=== PATIENT | female | born 1990 | race African-American/Black ===

== ENCOUNTER 2017-06-20 01:48 | Emergency (ER) | payer SELFPAY ==
[~2017-06-20] VITALS: Ht 167.6 cm; Wt 63.5 kg
[2017-06-20 02:10] VITALS: BP 150/79
[2017-06-20 02:41] LABS: APPEARANCE,URINE SLIGHTLY CLOUDY; BILIRUBIN, URINE NEGATIVE (NEGATIVE); COLOR,URINE PALE YELLOW; GLUCOSE, URINE (UA) NEGATIVE (NEGATIVE); KETONES,URINE NEGATIVE (NEGATIVE); LEUKOCYTE ESTERASE ,URINE NEGATIVE (NEGATIVE); NITRITE,URINE NEGATIVE (NEGATIVE); PH,URINE 5 (4.5-8.0); PROTEIN,URINE NEGATIVE (NEGATIVE); UROBILINOGEN,URINE NORMAL MG/DL (0.0-1.0)
--- NOTE | 2017-06-20 03:10 | Emergency Room Report ---
History of Present Illness General Chief Complaint: Altered Level of Consciousness Source: Patient, Family Member, EMS Present Illness HPI This is a 27-year-old female with no past medical history. She was celebrating her birthday tonight. She was at a club and was drinking and took a pink heart- shaped pill. Afterward she was acting abnormal according to her cousin. She was incoherent and then fell down a couple steps. She was then shaking and screaming. They called 911. Patient has no head injury. Does have abrasion to her elbow area. No nausea no vomiting. She is better now. Denies suicidal thought or homicidal thoughts. Allergies: Coded Allergies: No Known Allergies (Unverified , 06/20/17) Patient History Past Medical History: see triage record, old chart reviewed Past Surgical History: none Pertinent Family History: none Social History: Denies: smoking Now: No Immunizations: other Reviewed Nursing Documentation: PMH: Agreed, PSxH: Agreed Nursing Documentation-PMH Past Medical History: No Stated History Review of Systems Eye: Denies: eye pain, blurred vision ENT: Denies: ear pain, nose congestion, throat swelling Respiratory: Denies: cough, shortness of breath Cardiovascular: Denies: chest pain, palpitations Gastrointestinal: Denies: abdominal pain, diarrhea, nausea, vomiting Musculoskeletal: Denies: back pain, joint pain Skin: Denies: rash Neurological: Denies: headache, numbness Endocrine: Denies: increased thirst, increased urine Hematologic/Lymphatic: Denies: easy bruising All Other Systems: negative except mentioned in HPI Physical Exam Vital Signs Date Time Temp Pulse Resp B/P (MAP) Pulse Ox O2 Delivery O2 Flow Rate FiO2 06/20/17 01:48 98.0 100 18 185/80 98 Room Air 98.1 vitals with high blood pressure Sp02 EP Interpretation: reviewed, normal General Appearance: well appearing, no apparent distress, alert Head: normocephalic, atraumatic Eyes: bilateral eye PERRL, bilateral eye EOMI ENT: hearing grossly normal, normal pharynx Neck: full range of motion, supple, no meningismus Respiratory: chest non-tender, lungs clear, normal breath sounds Cardiovascular #1: regular rate, rhythm, no murmur Gastrointestinal: normal bowel sounds, non tender, no mass, no organomegaly, no bruit, non-distended Musculoskeletal: back normal, gait/station normal, normal range of motion Psychiatric: mood/affect normal Skin: warm/dry Medical Decision Making Diagnostic Impression: Primary Impression: Acute delirium Additional Impressions: Alcohol intoxication Qualified Codes: 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 She is back to baseline now. Still little tachycardic but heart rate in the 110s. We'll discharge home with her cousin. Last Vital Signs Date Time Temp Pulse Resp B/P (MAP) Pulse Ox O2 Delivery O2 Flow Rate FiO2 06/20/17 02:10 98.2 117 17 150/79 97 Room Air 98.2 Status: improved Disposition: HOME, SELF-CARE Condition: Stable Additional Instructions: Abstain from drinking to excess. Abstain from drugs. Follow-up with your DrTejas in 7 days. Return if worse. MARINA COLON M.D. Jun 20, 2017 03:10
[2017-06-20 03:31] VITALS: BP 132/74
[2017-06-20 04:15] VITALS: BP 129/74
[2017-06-20 04:20] VITALS: BP 129/74
== END 2017-06-20 04:20 | disposition home or self-care (01) ==
LOC: EDBD 01:48 → EMR 04:00
DX: F16.10 Hallucinogen abuse, uncomplicated (principal); R41.0 Disorientation, unspecified; F10.920 Alcohol use, unspecified with intoxication, uncomplicated; X58.XXXA Exposure to other specified factors, initial encounter; Y93.9 Activity, unspecified; Y92.29 Other specified public building as the place of occurrence of the external cause
CPT/HCPCS: 80307; 81003; 81025; 99283